=== PATIENT | male | born 1955 | race Two or more races ===

== ENCOUNTER 2016-10-19 08:42 | Outpatient (CLI) | payer OTHER ==
[2016-10-19] MEDS ORDERED: FLUMAZENIL 0.5 MG/5 ML MDV IVP ONE (08:58)
[2016-10-19] MEDS ORDERED: NALOXONE HCL 0.4 MG/ML INJ ONE (08:58)
[2016-10-19] MEDS ORDERED: fentaNYL 100 MCG/2 ML INJ ONE (08:59)
[2016-10-19] MEDS ORDERED: MIDAZOLAM 2 MG/2 ML VIAL ONE (08:59)
[2016-10-19 09:22] LABS: HEMATOCRIT 44.7 % (40.0-51.0)
[2016-10-19] MEDS ORDERED: NS 1,000 ML IV SCH (09:30)
[2016-10-19 09:36] LABS: INR 0.98 (0.83-1.16); PROTIME(PATIENT) 12.9 SEC (12.0-15.0)
[2016-10-19 09:37] LABS: APTT 27.6 SEC (23.0-38.0)
[2016-10-19 11:53] VITALS: RESP 16
[2016-10-19 14:06] VITALS: BP 126/75; PULSE 65; O2SAT 94
== END 2016-10-19 14:15 | disposition home or self-care (01) ==
LOC: FIMAGING 08:42
PROVIDERS: ATTEND Internal Medicine Hematology & Oncology
PROC: 0FB03ZX Excision of Liver, Percutaneous Approach, Diagnostic (ICD-10-PCS; principal; 2016-10-19 11:15)
DX: C22.0 Liver cell carcinoma (principal)
CPT/HCPCS: J2250; J2310; J3010

== ENCOUNTER → 2017-01-19 | Outpatient (CLI) | payer OTHER ==
[~2017-01-19] MED LIST: IOPAMIDOL (ISOVUE 370) 100 ML BTL IV ONE
== END ==
LOC: FIMAGING 11:50
PROVIDERS: ATTEND Radiology Diagnostic Radiology
DX: Z01.818 Encounter for other preprocedural examination (principal); K76.9 Liver disease, unspecified
CPT/HCPCS: Q9967

== ENCOUNTER → 2017-02-07 | Day surgery (SDC) | payer OTHER ==
[~2017-02-07] MED LIST changes: -IOPAMIDOL (ISOVUE 370) 100 ML BTL IV ONE; +IOPAMIDOL (ISOVUE-300) 100 ML BTL ONE; +MIDAZOLAM 2 MG/2 ML VIAL ONE; +NS 1,000 ML IV SCH; +fentaNYL 100 MCG/2 ML INJ ONE
[2017-02-07 08:38] LABS: HEMATOCRIT 45.8 % (40.0-51.0)
[2017-02-07 08:51] LABS: ANION GAP 13 mEq/L (8-16); CALCIUM 9.3 mg/dL (8.5-10.4); CARBON DIOXIDE 22 mEq/l (22-31); CHLORIDE 106 mEq/L (97-110); CREATININE 0.6 mg/dL (0.7-1.3); GLOMERULAR FILTRATION RATE > 60; GLUCOSE 119 mg/dL (70-100); POTASSIUM 4.4 mEq/L (3.5-5.2); SODIUM 141 mEq/L (134-144)
[2017-02-07 09:51] LABS: INR 0.97 (0.83-1.16); PROTIME(PATIENT) 12.8 SEC (12.0-15.0)
[2017-02-07 09:52] LABS: APTT 28.1 SEC (23.0-38.0)
[2017-02-07 10:00] LABS: ALBUMIN 4.3 g/dL (3.5-5.0); BILIRUBIN,TOTAL 1.5 mg/dL (0.1-1.4); BILIRUBIN-CONJUGATED 0.5 mg/dL (0.0-0.5); TOTAL PROTEIN 8.1 g/dL (6.3-8.2)
== END | disposition home or self-care (01) ==
LOC: FIMAGING 07:29
PROVIDERS: ATTEND Radiology Diagnostic Radiology
DX: C22.9 Malignant neoplasm of liver, not specified as primary or secondary (principal)
CPT/HCPCS: 75726; 78201; 99152; 99153; A9540; C1769; C1894; J1644; J2250; J3010; Q9967

== ENCOUNTER → 2017-02-15 | Day surgery (SDC) | payer OTHER ==
[~2017-02-15] MED LIST changes: +FLUMAZENIL 0.5 MG/5 ML MDV IVP ONE; +NALOXONE HCL 0.4 MG/ML INJ ONE; +ONDANSETRON 4 MG/2 ML VIAL ONE
[2017-02-15 08:23] LABS: HEMATOCRIT 44.3 % (40.0-51.0)
[2017-02-15 08:41] LABS: APTT 29.5 SEC (23.0-38.0); INR 0.99 (0.83-1.16)
[2017-02-15 08:56] LABS: CREATININE 0.6 mg/dL (0.7-1.3); GLOMERULAR FILTRATION RATE > 60
== END | disposition home or self-care (01) ==
LOC: FIMAGING 07:37
PROVIDERS: ATTEND Radiology Diagnostic Radiology
PROC: 04L03DZ Occlusion of Abdominal Aorta with Intraluminal Device, Percutaneous Approach (ICD-10-PCS; principal; 2017-02-15)
PROC: B4121ZZ Fluoroscopy of Hepatic Artery using Low Osmolar Contrast (ICD-10-PCS; principal; 2017-02-15)
PROC: B4101ZZ Fluoroscopy of Abdominal Aorta using Low Osmolar Contrast (ICD-10-PCS; principal; 2017-02-15)
PROC: 04L33DZ Occlusion of Hepatic Artery with Intraluminal Device, Percutaneous Approach (ICD-10-PCS; principal; 2017-02-15)
DX: C22.0 Liver cell carcinoma (principal)
CPT/HCPCS: 36245; 36247; 36248; 37243; 75726; 78201; 99152; 99153; A9540; C1769; C1894; C1760; J1644; J2250; J2310; J2405; J3010; Q9967

== ENCOUNTER → 2017-03-08 | Day surgery (SDC) | payer OTHER ==
[~2017-03-08] MED LIST changes: +ALTEPLASE 2 MG VIAL IVP PRN; -FLUMAZENIL 0.5 MG/5 ML MDV IVP ONE; +FLUMAZENIL 0.5 MG/5 ML MDV IVP PRN; +GLUCAGON HCL 1 MG VIAL IVP PRN; +HEPARIN 10,000 UNIT/10 ML MDV IVP PRN; +MEPERIDINE 25 MG/ML SYR IVP PRN; +MIDAZOLAM 2 MG/2 ML VIAL IVP PRN; -MIDAZOLAM 2 MG/2 ML VIAL ONE; +NALOXONE HCL 0.4 MG/ML INJ IVP PRN; -NALOXONE HCL 0.4 MG/ML INJ ONE; +NS 1,000 ML IV ONE; -NS 1,000 ML IV SCH; -ONDANSETRON 4 MG/2 ML VIAL ONE; +PANTOPRAZOLE SODIUM 40 MG VIAL IVP ONE; +PROTAMINE SULFATE 50 MG/5 ML VIAL IVP PRN; +fentaNYL 100 MCG/2 ML INJ IVP PRN; -fentaNYL 100 MCG/2 ML INJ ONE; +methylPREDNISolone SOD SUCC 125 MG/2 ML VIAL IVP ONE
[2017-03-08 09:41] VITALS: PULSE 81; RESP 16; TEMP 97.8
--- NOTE | 2017-03-08 09:59 | PDPROPOC ---
Sedation Plan of Care ASA Classification: ASA 3 Planned drugs: fentanyl, midazolam Mallampati Score: Class 2 Mallampati Reference Image: Patient passed 3-3-2 rule?: Yes
--- NOTE | 2017-03-08 10:01 | PDGENHP ---
History & Physical Chief Complaint: HCC History of Present Illness: LARGE RIGHT LIVER CA. HIGH RISK PATIENT FOR BOTH CHEMOEMBO AND Y90. WE'VE HAD DETAILED DISCUSSIONS. Y90 IS AT THE MOMENT THE PATIENT'S BEST OPTION. Pertinent Past, Social, Family History: N/A Relevant Physical Exam: SLIGHT JAUNDICE ON AND OFF IN LAST MONTH. Cardiorespiratory Assessment: RRR. CTA BILATERAL
[2017-03-08 10:37] LABS: ALANINE AMINOTRANSFERASE 53 IU/L (21-72); ALKALINE PHOSPHATASE 173 IU/L (38-126); ANION GAP 14 mEq/L (8-16); ASPARTATE AMINOTRANSFERASE 48 IU/L (17-59); BILIRUBIN,TOTAL 0.8 mg/dL (0.1-1.4); CARBON DIOXIDE 23 mEq/l (22-31); CHLORIDE 106 mEq/L (97-110); CREATININE 0.6 mg/dL (0.7-1.3); GLOMERULAR FILTRATION RATE > 60; GLUCOSE 86 mg/dL (70-100); POTASSIUM 4.6 mEq/L (3.5-5.2); SODIUM 143 mEq/L (134-144); TOTAL PROTEIN 7.4 g/dL (6.3-8.2)
[2017-03-08 11:32] VITALS: O2SAT 95
[2017-03-08 11:37] VITALS: BP 123/73
--- NOTE | 2017-03-08 17:14 | PDRADPN ---
Radiology Procedure Note Date of Procedure: 03/08/17 Radiologist: Jonelle Vega Anesthesia: IV Sedation (FENTANYL AND VERSED) Pre-op Diagnosis: HCC Post-op Diagnosis: SAME Indication: PALIATIVE TREATMENT Procedure: Y90 EMBOLIZATION TO RT LIVER TUMOR Finding(s): VASCULARITY MUCH SMALLER DUE TO PRIOR BLAND EMBO. SMALL DOSE OF Y90 DELIVERED. Inf/Abcess present in the surg proc area at time of surgery?: No EBL: Minimal Complications: NONE
== END | disposition home or self-care (01) ==
LOC: FIMAGING 09:05
PROVIDERS: ATTEND Radiology Diagnostic Radiology
PROC: 04L33DZ Occlusion of Hepatic Artery with Intraluminal Device, Percutaneous Approach (ICD-10-PCS; principal; 2017-03-08)
PROC: B4121ZZ Fluoroscopy of Hepatic Artery using Low Osmolar Contrast (ICD-10-PCS; principal; 2017-03-08)
DX: C22.0 Liver cell carcinoma (principal)
CPT/HCPCS: 36247; 37243; 75726; 77790; 78201; 79445; 99152; 99153; C1769; C1894; C1760; J1200; J1644; J2250; J2310; J2930; J3010; Q9967

== ENCOUNTER → 2017-09-14 | Outpatient (CLI) | payer OTHER | LOC: FIMAGING 10:42 | PROVIDERS: ATTEND Physician Assistant | DX: J98.4 Other disorders of lung (principal) ==

== ENCOUNTER → 2017-10-03 | Outpatient (CLI) | payer OTHER | LOC: FIMAGING 10:37 | PROVIDERS: ATTEND Internal Medicine Hematology & Oncology | DX: J18.9 Pneumonia, unspecified organism (principal); Z85.05 Personal history of malignant neoplasm of liver ==

== ENCOUNTER → 2017-10-24 | Outpatient (CLI) | payer OTHER | LOC: FIMAGING 09:33 | PROVIDERS: ATTEND Internal Medicine Hematology & Oncology | DX: J18.9 Pneumonia, unspecified organism (principal); R91.1 Solitary pulmonary nodule ==

== ENCOUNTER → 2018-01-25 | Outpatient (CLI) | payer OTHER | LOC: FIMAGING 12:51 | PROVIDERS: ATTEND Nurse Practitioner | DX: M79.662 Pain in left lower leg (principal); R22.42 Localized swelling, mass and lump, left lower limb ==

== ENCOUNTER 2018-02-04 11:02 | Emergency (ER) | payer OTHER ==
[2018-02-04] MEDS ORDERED: fentaNYL 100 MCG/2 ML INJ IVP ONE ×3 (11:44→15:03)
--- NOTE | 2018-02-04 11:45 | EDPHY ---
H & P Time Seen by Provider: 02/04/18 11:36 HPI/ROS: CHIEF COMPLAINT: Left leg pain HISTORY OF PRESENT ILLNESS: Patient is a 62-year-old male with known metastatic liver cancer here chief complaint of 1 month of worsening left posterior leg pain radiating to the bottom of his foot. He has known metastases to the sacrum and was sent here by his oncologist for MRI to evaluate for possible metastatic lesion causing compression of the nerve root. Denies any bowel or bladder incontinence, fever, inability to walk, leg weakness , injury, saddle paresthesias., trouble urinating. REVIEW OF SYSTEMS: Constitutional: No fever, no chills. Eyes: No discharge. ENT: No sore throat. Cardiovascular: No chest pain, no palpitations. Respiratory: No cough, no shortness of breath. Gastrointestinal: No abdominal pain, no vomiting. Genitourinary: No hematuria. Musculoskeletal: + back pain. Skin: No rashes. Neurological: No headache. Smoking Status: Never smoked Physical Exam: General Appearance: Alert and no distress. Eyes: Pupils equal and round no injection. Respiratory: Chest is nontender, lungs are clear to auscultation. Cardiac: regular rate and rhythm. Gastrointestinal: Abdomen is soft and nontender, no masses, bowel sounds normal. Musculoskeletal: Neck is supple and nontender. Extremities have full range of motion and are nontender. Patient has equal strength and sensation in bilateral lower extremities. Pedal pulses are strong bilateral feet. Skin: No rashes or lesions. Constitutional: Initial Vital Signs Temperature (C) 36.6 C 02/04/18 11:12 Heart Rate 79 02/04/18 11:12 Respiratory Rate 16 02/04/18 11:12 Blood Pressure 128/73 H 02/04/18 11:12 O2 Sat (%) 93 02/04/18 11:12 O2 Delivery Mode Room Air Allergies/Adverse Reactions: No Known Allergies Allergy (Verified 02/04/18 11:18) Home Medications: Medication Instructions Recorded Amlodipine Besylate 10 mg PO DAILY 10/13/16 Benazepril HCl 40 mg PO DAILY 10/13/16 CLONAZEPAM 1 mg PO PRN PRN 10/13/16 Calcium 600-Vit D3 400 Tablet PO DAILY 10/13/16 GLIPIZIDE XL 10 mg PO DAILY 10/13/16 Glucosamine 1,500 mg PO DAILY 10/13/16 Invokamet 50-500 mg Tablet 100 mg PO DAILY 10/13/16 Metformin HCl 1,000 mg PO BID 10/13/16 Multivitamin 1 tab PO DAILY 10/13/16 DEXILANT 02/04/18 Lovastatin 02/04/18 methylPREDNISolone [Medrol Dose 1 each PO AD #1 ea 02/04/18 Domingo] oxyCODONE HCL [Oxaydo] 5 mg PO Q6 #25 tablet.orl 02/04/18 Medical Decision Making - Diagnostics Imaging Results: Imaging Impressions Lumbar Spine MRI 02/04/18 11:43 Impression: 1. Bony metastatic disease involving the sacrum, extending into the left S1 and S2 foramen, possibly causing nerve root impingements. 2. Multilevel spondylosis. There is severe degenerative central canal spinal stenosis worst at L4-L5 with the narrowest neural foramen being on the left at L5-S1. Please see above. A message was left for Royal Kyung at 2:05 PM. ED Course/Re-evaluation: 62-year-old male with no metastatic liver cancer here with concern for sciatic- like symptoms. MRI shows metastatic lesions that are near the foramina of the S1 and S2 nerve root. He also has severe lumbar stenosis and foraminal stenosis in the low lumbar spine at the L4-L5 level. This could explain his radicular symptoms as could the lesions in the sacrum. I discussed case with Dr. Palacios on-call for Neurosurgery who agrees with treated the patient with Medrol Dosepak and following up in his office early next week. Additionally I contacted the patient's oncologist who reviewed the MR Barry. He also agreed with follow-up with Neurosurgery early next week and treat with Medrol Dosepak and increasing his oxycodone from 5 mg to 10 mg as needed. I discussed this with the patient and his family and all other questions were answered and they agreed with the said plan. Differential Diagnosis: Cauda equina, epidural abscess, cord compression, fracture, pathologic fracture - Data Points Laboratory Results: Laboratory Results 02/04/18 12:00 02/04/18 12:00 02/04/18 02/04/18 12:00 12:00 WBC 5.85 10^3/uL 10^3/uL (3.80-9.50) RBC 5.63 10^6/uL 10^6/uL (4.40-6.38) Hgb 13.9 g/dL g/dL (13.7-17.5) Hct 43.0 % % (40.0-51.0) MCV 76.4 fL L fL (81.5-99.8) MCH 24.7 pg L pg (27.9-34.1) MCHC 32.3 g/dL L g/dL (32.4-36.7) RDW 15.7 % H % (11.5-15.2) Plt Count 294 10^3/uL 10^3/uL (150-400) MPV 9.4 fL fL (8.7-11.7) Neut % (Auto) Not Reported Lymph % (Auto) Not Reported Wise % (Auto) Not Reported Eos % (Auto) Not Reported Baso % (Auto) Not Reported Nucleat RBC Rel Count Not Reported Absolute Neuts (auto) Not Reported Absolute Lymphs (auto) Not Reported Absolute Monos (auto) Not Reported Absolute Eos (auto) Not Reported Absolute Basos (auto) Not Reported Absolute Nucleated RBC Not Reported Immature Gran % Not Reported Seg Neutrophils % 77.0 % % Band Neutrophils % 0.0 % % Lymphocytes % 18.0 % % Monocytes % 3.0 % % Eosinophils % 2.0 % % Basophils % 0.0 % % Metamyelocytes % 0.0 % % Myelocytes % 0.0 % % Promyelocytes % 0.0 % % Blast Cells % 0.0 % % Immature Gran # Not Reported Absolute Seg Neuts 4.50 10^/uL 10^/uL (1.70-6.50) Absolute Band Neuts 0.00 10^3/uL 10^3/uL (0.00-0.70) Absolute Lymphocytes 1.05 10^3/uL 10^3/uL (1.00-3.00) Absolute Monocytes 0.18 10^3/uL L 10^3/uL (0.30-0.80) Absolute Eosinophils 0.12 10^3/uL 10^3/uL (0.03-0.40) Absolute Basophils 0.00 10^3/uL L 10^3/uL (0.02-0.10) Absolute Metamyelocyte 0.00 10^3/mL 10^3/mL (0.00-0.00) Absolute Myelocytes 0.00 10^3/mL 10^3/mL (0.00-0.00) Absolute Promyelocytes 0.00 10^3/uL 10^3/uL (0.00-0.00) Absolute Plasma Cells 0.00 10^3/uL 10^3/uL (0.00-0.00) Nucleated RBCs 0 /100 WBC /100 WBC (0-0) Absolute Blast Cells 0.00 10^3/uL 10^3/uL (0.00-0.00) Plasma Cells % 0.0 % % Platelet Estimate ADEQUATE (ADEQ) Polychromasia 1+ H Elliptocytes 1+ H Sodium 139 mEq/L mEq/L (135-145) Potassium 4.6 mEq/L mEq/L (3.3-5.0) Chloride 103 mEq/L mEq/L (97-110) Carbon Dioxide 24 mEq/l mEq/l (22-31) Anion Gap 12 mEq/L mEq/L (6-14) BUN 13 mg/dL mg/dL (7-23) Creatinine 0.7 mg/dL mg/dL (0.7-1.3) Estimated GFR > 60 Glucose 103 mg/dL H mg/dL (70-100) Calcium 9.5 mg/dL mg/dL (8.5-10.4) Medications Given: Discontinued Medications Fentanyl (Sublimaze) 100 mcg IVP EDNOW ONE Stop: 02/04/18 11:45 Last Admin: 02/04/18 12:04 Dose: 100 mcg Fentanyl (Sublimaze) 50 mcg IVP EDNOW ONE Stop: 02/04/18 13:52 Last Admin: 02/04/18 13:54 Dose: 50 mcg Fentanyl (Sublimaze) 100 mcg IVP EDNOW ONE Stop: 02/04/18 15:04 Last Admin: 02/04/18 15:15 Dose: 100 mcg Ketorolac Tromethamine (Toradol) 15 mg IVP EDNOW ONE Stop: 02/04/18 15:10 Last Admin: 02/04/18 15:15 Dose: 15 mg Departure - Departure Disposition: Home, Routine, Self-Care Clinical Impression: Multiple lesions of metastatic malignancy, Lumbar stenosis, Lumbar radiculopathy Condition: Good Instructions: Oxycodone, Rapid Release (By mouth), Methylprednisolone (By mouth ), Lumbar Radiculopathy (ED) Referrals: Sav Oviedo DO [Primary Care Provider] - As per Instructions Conner Palacios MD [Medical Doctor] - As per Instructions Prescriptions: methylPREDNISolone [Medrol Dose Domingo] 1 each PO AD #1 ea oxyCODONE HCL [Oxaydo] 5 mg PO Q6 #25 tablet.orl
[2018-02-04 12:11] LABS: PLATELET COUNT 294 10^3/uL (150-400)
[2018-02-04] MEDS ORDERED: GADOBUTROL 10 ML VIAL IVP ONE (12:22)
[2018-02-04] MEDS ORDERED: KETOROLAC 15 MG/1 ML SDV IVP ONE (15:09)
[2018-02-04 15:13] VITALS: BP 117/61
== END 2018-02-04 15:50 | disposition home or self-care (01) ==
DX: C79.51 Secondary malignant neoplasm of bone (principal); C78.7 Secondary malignant neoplasm of liver and intrahepatic bile duct; M48.061 Spinal stenosis, lumbar region without neurogenic claudication; M54.16 Radiculopathy, lumbar region
CPT/HCPCS: 96374; A9585; J1885; J3010

== ENCOUNTER 2018-02-14 11:52 | Day surgery (SDC) | payer OTHER ==
[2018-02-14] MEDS ORDERED: ONDANSETRON 4 MG/2 ML VIAL IVP ONE (13:03)
[2018-02-14] MEDS ORDERED: FLUMAZENIL 0.5 MG/5 ML MDV IVP PRN (13:03)
[2018-02-14] MEDS ORDERED: MIDAZOLAM 2 MG/2 ML VIAL IVP PRN (13:03)
[2018-02-14] MEDS ORDERED: fentaNYL 100 MCG/2 ML INJ IVP PRN (13:03)
[2018-02-14] MEDS ORDERED: MEPERIDINE 25 MG/ML SYR IVP PRN (13:03)
[2018-02-14] MEDS ORDERED: NALOXONE HCL 0.4 MG/ML INJ IVP PRN (13:03)
[2018-02-14] MEDS ORDERED: NS 1,000 ML IV SCH (13:15)
[2018-02-14] MEDS ORDERED: LIDOCAINE 1% 300 MG/30 ML SDV ONE (14:07)
[2018-02-14] MEDS ORDERED: IOPAMIDOL (ISOVUE-M 300) 15 ML VIAL ONE (14:07)
[2018-02-14] MEDS ORDERED: TRIAMCINOLONE ACETONIDE 200 MG/5 ML MDV IM ONE (14:07)
[2018-02-14] MEDS ORDERED: ONDANSETRON 4 MG/2 ML VIAL IVP PRN (14:20)
--- NOTE | 2018-02-14 14:22 | PDRADPN ---
Radiology Procedure Note Date of Procedure: 02/14/18 Radiologist: Jackie Pham Pre-op Diagnosis: back pain Post-op Diagnosis: same Indication: Left L5-S1 SNRB Inf/Abcess present in the surg proc area at time of surgery?: No
--- NOTE | 2018-02-14 14:22 | PDPROPOC ---
Sedation Plan of Care ASA Classification: ASA 2 Mallampati Score: Class 2 Mallampati Reference Image:
--- NOTE | 2018-02-14 14:22 | PDRADPRE ---
Radiology History & Physical Indication for procedure: back pain Home medications: Amlodipine Besylate 10 mg PO DAILY 10/13/16 [Last Taken 02/14/18] Benazepril HCl 40 mg PO DAILY 10/13/16 [Last Taken 02/14/18] CLONAZEPAM 1 mg PO PRN PRN 10/13/16 [Last Taken 02/12/18] Calcium 600-Vit D3 400 Tablet PO DAILY 10/13/16 [Last Taken 02/14/18] GLIPIZIDE XL 10 mg PO DAILY 10/13/16 [Last Taken 02/14/18] Glucosamine 1,500 mg PO DAILY 10/13/16 [Last Taken 02/14/18] Invokamet 50-500 mg Tablet 100 mg PO DAILY 10/13/16 [Last Taken 02/14/18] Metformin HCl 1,000 mg PO BID 10/13/16 [Last Taken 02/14/18] Multivitamin 1 tab PO DAILY 10/13/16 [Last Taken 02/14/18] DEXILANT 02/04/18 [Last Taken 02/14/18] Lovastatin 02/04/18 [Last Taken 02/13/18] Allergies/Adverse Reactions: No Known Allergies Allergy (Verified 02/04/18 11:18) Mental status: A&Ox3 Heart exam: regular rate and rhythm
[2018-02-14 14:31] VITALS: BP 100/57
== END 2018-02-14 15:19 | disposition home or self-care (01) ==
LOC: FIMAGING 11:52
PROVIDERS: ATTEND Radiology Diagnostic Radiology
DX: M54.16 Radiculopathy, lumbar region (principal)
CPT/HCPCS: J2250; J2310; J3010; J3301; Q9967